=== PATIENT | male | born 1945 | race Caucasian/White ===

== ENCOUNTER 2021-01-28 16:06 | Emergency (ER) | payer MEDICARE, SELFPAY ==
[2021-01-28 16:18] VITALS: BMI 24.3
[2021-01-28 16:48] LABS: Bacteria Urine None Seen
[2021-01-28 16:51] LABS: Appearance Urine UA SL CLOUDY; Bilirubin Urine UA 1+ (NEGATIVE); Color Urine UA RED; Glucose Urine UA NEGATIVE (Negative); Ketones Urine UA NEGATIVE (NEGATIVE); Leukocyte Esterase Urine UA TRACE (NEGATIVE); Occult Blood Urine UA 3+ (Negative); Protein Urine UA 2+ (Negative); Urobilinogen Urine UA 0.2 E.U./dL (0.2); pH Urine UA 6.5 (4.5-8.0)
--- NOTE | 2021-01-28 16:55 | DI.CT.S_ITS ---
PROCEDURE: CT HEAD/BRAIN WO CON INDICATIONS: fall TECHNIQUE: Noncontrast 4.5 mm thick angled axial sections acquired from the foramen magnum to the vertex, with coronal and sagittal reformats. For radiation dose reduction, the following was used: automated exposure control, adjustment of mA and/or kV according to patient size. COMPARISON: [facility], CT, CT CERVICAL SPINE WO CON, 01/28/2021, 17:06. FINDINGS: Image quality: Excellent. CSF spaces: Basal cisterns are patent. No extra-axial fluid collections. The ventricles are symmetric in size and shape. Brain: No intracranial bleeds or masses. There is cerebral volume loss for age, with resultant ventricular and sulcal prominence. There are periventricular and deep white matter chronic small vessel ischemic changes. There is intracranial internal carotid artery atherosclerosis. Skull and face: Calvarium and visualized facial bones appear intact, without suspicious lesions. Sinuses: Visualized sinuses and mastoids are clear. IMPRESSION: No acute intracranial hemorrhage is seen. No acute intracranial process is seen. Dictated by: Thor Nolasco M.D. on 01/28/2021 at 16:28 Approved by: Thor Nolasco M.D. on 01/28/2021 at 16:29
--- NOTE | 2021-01-28 16:55 | DI.CT.S_ITS ---
PROCEDURE: CT CHEST ABD PEL W CON INDICATIONS: hematuria after trauma TECHNIQUE: After the administration of intravenous contrast, 5 mm thick sections acquired from the lung apices to the symphysis. 2.5 mm thick coronal and sagittal reformats were acquired. Additional 7 mm thick coronal maximum intensity projection (MIP) reformats acquired through the lungs. Optional 10-minute delayed imaging may be performed from the kidneys to the bladder. For radiation dose reduction, the following was used: automated exposure control, adjustment of mA and/or kV according to patient size. COMPARISON: [facility], CT, CT HEAD/BRAIN WO CON, 01/28/2021, 17:06. [facility], CT, CT CERVICAL SPINE WO CON, 01/28/2021, 17:06. FINDINGS: Image quality: Excellent. CHEST: Lungs: No pulmonary contusions or lacerations. Numerous calcified granulomas can be seen within the lungs. No suspicious soft tissue nodules are seen. No acute airspace opacities. No pneumothorax or hemothorax. Central and peripheral airways appear patent and normal in caliber. Mediastinum: No mediastinal hematomas. Heart size is normal. No pericardial effusion. Thoracic aorta and pulmonary arteries demonstrate normal size and enhancement. No mediastinal or hilar adenopathy. Calcified mediastinal lymph nodes are seen. Esophagus is normal in caliber. There is a small hiatal hernia. Chest wall: No rib fractures. No subcutaneous emphysema. No axillary or supraclavicular adenopathy. Thyroid gland demonstrates no significant abnormality. ABDOMEN: Solid organs: Liver is normal in size and enhancement, without lacerations. Gallbladder wall is not thickened. Biliary system is non-dilated. Pancreas enhances normally, without transection. Spleen is normal in size and enhancement, without lacerations. No adrenal hematomas. There is a right renal mass seen laterally and superiorly that measures 17.3 x 17.5 x 10 cm. There is irregular enhancement seen within this mass. There is also a simple cyst seen involving the mid kidney measuring water density and 2 cm. Peritoneum and bowel: No free fluid or air. Unenhanced bowel loops demonstrate normal wall thickness and caliber. Nodes and vessels: Enlarged retroperitoneal lymph nodes are seen, including a group right periaortic lymph nodes that measure 3.9 x 3.3 x 5.3 cm, when measured together. No mesenteric adenopathy. Aorta and inferior vena cava are normal in size and enhancement. Miscellaneous: No ventral hernias. PELVIS: Genitourinary: Bladder wall thickness is normal. The prostate is enlarged, measuring greater than 7 cm. Miscellaneous: No inguinal adenopathy. There is a right inguinal hernia seen, which largely contains fat, although it also contains a small amount colon and nondilated small bowel. There is a fat containing left inguinal hernia. Bones: There is a lytic focus seen within the left aspect of the S1-S2 level that measures at least 5.4 cm. Pelvic ring and hip joints appear intact. No vertebral compression fractures. IMPRESSION: No significant acute posttraumatic abnormality is identified. Metastatic renal cancer in till proven otherwise, with a right renal mass seen that measures 17.5 cm. There is also a lytic mass within the left sacrum at the S1-S2 level. Enlarged retroperitoneal lymph nodes are seen, which are metastatic until proven otherwise. Bilateral inguinal hernias are seen, including a right inguinal hernia which contains a portion of colon and nondilated small bowel. Incidental note is made of: Prior granulomatous exposure. Small hiatal hernia Simple right renal cyst Enlarged prostate Note: Case discussed by telephone with Dr. Rodriguez at 5:12 p.m. [place] time on January 28, 2021. Dictated by: Thor Nolasco M.D. on 01/28/2021 at 17:05 Approved by: Thor Nolasco M.D. on 01/28/2021 at 17:14
--- NOTE | 2021-01-28 16:56 | DI.CT.S_ITS ---
PROCEDURE: CT CERVICAL SPINE WO CON INDICATIONS: fall TECHNIQUE: Noncontrast 3 mm thick sections acquired from the skull base to the T4 level. Sagittal and coronal reformats were then constructed. For radiation dose reduction, the following was used: automated exposure control, adjustment of mA and/or kV according to patient size. COMPARISON: [facility], CT, CT HEAD/BRAIN WO CON, 01/28/2021, 17:06. FINDINGS: Image quality: This examination is somewhat limited by quantum mottle artifact. Bones: No fractures or dislocations. Visualized superior ribs are intact. Degenerative changes are seen throughout, with at least moderate disc space narrowing at C3-C4, C4-C5, C5-C6, and C6-C7. Post erected endplate osteophytes are seen, which are worst at C3-C4 and at C6-C7. Soft tissues: Prevertebral soft tissues are normal in thickness. No paravertebral hematomas. No apical pneumothoraces. IMPRESSION: Negative for fracture. Relatively prominent cervical spine degenerative changes are seen. No pneumothorax can be seen at the lung apices. Dictated by: Thor Nolasco M.D. on 01/28/2021 at 16:30 Approved by: Thor Nolasco M.D. on 01/28/2021 at 16:31
[2021-01-28 17:04] LABS: Add Manual Diff / Slide Review NO; Basophils Absolute Auto 100 /uL (0-100); Basophils Percent Auto 0.8 % (0-2); Eosinophils Absolute Auto 300 /uL (0-450); Eosinophils Percent Auto 2.9 % (2-4); Hematocrit 38.5 % (41-53); Hemoglobin 12.5 g/dL (13.5-17.5); Lymphocytes Absolute Auto 1100 /uL (1100-4500); Lymphocytes Percent Auto 11.3 % (25-40); Mean Corpuscular HGB Conc 32.4 % (30-36); Mean Corpuscular Hemoglobin 26.6 PG (26-34); Mean Corpuscular Volume 82.2 fL (80-100); Monocytes Absolute Auto 1000 /uL (0-900); Neutrophils Absolute Auto 7400 /uL (1500-7000); Platelet Count 318 X10^3/uL (150-400); Red Blood Cell Count 4.68 X10^6/uL (4.5-5.9); Red Cell Distribution Width 14.9 % (11.6-14.8); White Blood Cell Count 9.8 X10^3/uL (4.5-11.0)
[2021-01-28 17:04] LABS: Culture Indicated Urine Specimen Cultured; Ictotest Urine Negative (Negative); Nitrite Urine UA NEGATIVE (Negative); RBC Urine >100/HPF (0-5/HPF); WBC Urine 5-10/HPF (0-5/HPF)
[2021-01-28 17:13] LABS: INR 1.3 (0.9-1.3); Prothrombin Time 14.5 SECONDS (10.1-12.7)
[2021-01-28 17:15] LABS: PTT Partial Thromboplastin Tim 35 SECONDS (26.4-36.2)
[2021-01-28 17:17] LABS: Alanine Aminotransferase 18 IU/L (<50); Albumin Globulin Ratio 1.1 (1.0-2.8); Alkaline Phosphatase 110 U/L (38-126); Aspartate Aminotransferase 49 IU/L (17-59); BUN Creatinine Ratio 25.3 (6-22); Bilirubin Total 0.5 mg/dL (0.2-1.3); Blood Urea Nitrogen 19 mg/dL (9-20); Calcium 9.1 mg/dL (8.4-10.2); Carbon Dioxide 27 mmol/L (22-32); Chloride 101 mmol/L (98-107); Creatine Kinase 55 U/L (55-170); Estimated Glomerular Filt Rate > 60.0 mL/min (>60); Globulin 3.8 g/dL (1.7-4.1); Glucose 106 mg/dL (80-110); HEMOLYSIS < 15 (0-50); Potassium 4.1 mmol/L (3.4-5.1); Sodium 136 mmol/L (137-145); Total Protein 7.8 g/dL (6.3-8.2)
--- NOTE | 2021-01-28 17:20 | ED_ITS ---
HPI - Fall General Chief Complaint: Trauma Stated Complaint: FALL HIT FACE BLOOD IN URINE Time Seen by Provider: 01/28/21 16:36 Source: patient Mode of arrival: Ambulatory History of Present Illness HPI Narrative: Patient is a 75-year-old male who presents after a fall. He was walking around on some rocks at [facility]. There is a small crevice and legs high he fell in between the crevice kind of hit his face. He did not hit his head no loss of consciousness. He really has no injury except for some small abrasions on his face. However what brought him to the emergency department is that he is urinating blood. He said the 1st time it was quite a bit on the time in the emergency department now it is extremely dark and cloudy. He has absolutely no back pain. He is not dizzy or lightheaded. He has no blood in his meatus. He denies any testicular pain. He has been ambulatory without difficulty. He really has no other complaints. He has not had any weakness or fatigue. No significant weight loss. Related Data Allergies Allergy/AdvReac Type Severity Reaction Status Date / Time No Known Drug Allergies Allergy Verified 01/28/21 16:25 Review of Systems Review of Systems ROS Unobtainable: All systems reviewed & are unremarkable except as noted in HPI and below Constitutional Constitutional: Denies chills, Denies fatigue, Denies fever(s), Denies frequent falls, Denies lethargy and Denies weakness Eyes Eyes: Denies change in vision, Denies eye discharge, Denies irritation and Denies loss of vision ENT Ears, Nose, Mouth, and Throat: Denies change in voice, Denies dizziness, Denies neck pain, Denies sore throat and Denies throat swelling Cardiovascular Cardiovascular: Denies chest pain, Denies irregular heart rhythm, Denies lightheadedness, Denies palpitations, Denies dyspnea, Denies dyspnea on exertion and Denies orthopnea Respiratory Respiratory: Denies cough, Denies dyspnea, Denies dyspnea on exertion and Denies wheezing Gastrointestinal Gastrointestinal: Denies abdominal pain, Denies change in bowel habits, Denies diarrhea, Denies nausea and Denies vomiting Genitourinary Genitourinary: Reports as per HPI Musculoskeletal Musculoskeletal: Denies neck pain and Denies numbness Integumentary/Breasts Skin/Breast: Denies pruritus, Denies erythema, Denies rash and Reports wounds (Abrasions on face) Neurologic Neurologic: Denies dizziness, Denies frequent falls, Denies loss of vision, Denies numbness and Denies weakness Endocrine Endocrine: Denies fatigue, Denies flushing and Denies palpitations Hematologic/Lymphatic Hematologic/Lymphatic: Denies easy bruising Allergic/Immunologic Allergic/Immunologic: Denies urticaria, Denies throat swelling and Denies wheezing Patient History Social History Smoking Status: Never smoker Smoking Status: Never smoker alcohol intake frequency: holidays/special occasions only Substance Use Type: does not use Exam Initial Vital Signs Initial Vital Signs: GENERAL: Alert pleasant 75-year-old male and in no acute distress. HEENT: Head atraumatic,EOMI, pupils reactive, mild facial abrasions on it chin and right cheek NECK: Supple no vertebral tenderness no step-off CARDIOVASCULAR: Regular rate and rhythm without murmurs, rubs or gallops. RESPIRATORY: Breath sounds equal bilaterally, no wheezes rales or rhonchi. ABDOMEN: Soft, nontender. Normoactive bowel sounds all 4 quadrants. No guarding or rebound. BACK: No vertebral tenderness no step-offs no sign of trauma : No CVA tenderness, Alejandra nurse in room no blood at meatus no testicular pain no sign of trauma EXTREMITIES: Normal range of motion, no clubbing or edema. Neurovascularly intact NEUROLOGICAL: Alert and oriented x4.Normal gait and speech. Cranial nerves II through XII grossly intact. SKIN: Warm, dry, no laceration, no petechiae, no rashes or lesions. Course Orders Ordered: ED Orders 01/28/21 16:25 Ictotest Urine Stat Urinalysis and Microscopic Stat Urine Culture Stat 01/28/21 16:55 CT chest abd pel w con Stat CT head/brain wo con Stat Complete Blood Count AUTO DIFF Stat Comprehensive Metabolic Panel Stat Creatine Kinase Stat Partial Thromboplastin Time Stat Prothrombin Time INR Stat 01/28/21 16:56 CT cervical spine wo con Stat MDM - Fall Lab Data Attestation: I reviewed the patient's lab results. Result diagrams: 01/28/21 16:55 01/28/21 16:55 Labs: Lab Results 01/28/21 01/28/21 01/28/21 Range/Units 16:25 16:55 16:55 WBC 9.8 (4.5-11.0) X10^3/uL RBC 4.68 (4.5-5.9) X10^6/uL Hgb 12.5 L (13.5-17.5) g/dL Hct 38.5 L (41-53) % MCV 82.2 (80-100) fL MCH 26.6 (26-34) PG MCHC 32.4 (30-36) % RDW 14.9 H (11.6-14.8) % Plt Count 318 (150-400) X10^3/uL Neut % (Auto) 75.0 (50-75) % Lymph % (Auto) 11.3 L (25-40) % [place] % (Auto) 10.0 (3-14) % Eos % (Auto) 2.9 (2-4) % Baso % (Auto) 0.8 (0-2) % Neut # (Auto) 7400 H (6691-1641) /uL Lymph # (Auto) 1100 (7883-1624) /uL [place] # (Auto) 1000 H (0-900) /uL Eos # (Auto) 300 (0-450) /uL Baso # (Auto) 100 (0-100) /uL PT 14.5 H (10.1-12.7) SECONDS INR 1.3 (0.9-1.3) APTT 35 (26.4-36.2) SECONDS Sodium (137-145) mmol/L Potassium (3.4-5.1) mmol/L Chloride (98-107) mmol/L Carbon Dioxide (22-32) mmol/L BUN (9-20) mg/dL Creatinine (0.66-1.25) mg/dL Estimated GFR (>60) mL/min BUN/Creatinine Ratio (6-22) Glucose (80-110) mg/dL Calcium (8.4-10.2) mg/dL Total Bilirubin (0.2-1.3) mg/dL AST (17-59) IU/L ALT (<50) IU/L Alkaline Phosphatase (38-126) U/L Total Creatine Kinase (55-170) U/L Total Protein (6.3-8.2) g/dL Albumin (3.5-5.0) g/dL Globulin (1.7-4.1) g/dL Albumin/Globulin Ratio (1.0-2.8) Urine Color Red Urine Appearance Sl cloudy Urine pH 6.5 (4.5-8.0) Ur Specific [place] 1.020 (1.000-1.035) Urine Protein 2+ H (Negative) Urine Glucose (UA) Negative (Negative) g/dL Urine Ketones Negative (NEGATIVE) Urine Occult Blood 3+ H (Negative) Urine Nitrate Negative (Negative) Urine Bilirubin 1+ H (NEGATIVE) Ur Bilirubin Confirm Negative (Negative) Urine Urobilinogen 0.2 (0.2) E.U./dL Ur Leukocyte Esterase Trace H (NEGATIVE) Urine RBC >100/hpf H (0-5/HPF) Urine WBC 5-10/hpf H (0-5/HPF) Urine Bacteria None seen (None) Ur Culture Indicated? Specimen cultured 01/28/21 Range/Units 16:55 WBC (4.5-11.0) X10^3/uL RBC (4.5-5.9) X10^6/uL Hgb (13.5-17.5) g/dL Hct (41-53) % MCV (80-100) fL MCH (26-34) PG MCHC (30-36) % RDW (11.6-14.8) % Plt Count (150-400) X10^3/uL Neut % (Auto) (50-75) % Lymph % (Auto) (25-40) % [place] % (Auto) (3-14) % Eos % (Auto) (2-4) % Baso % (Auto) (0-2) % Neut # (Auto) (7735-1104) /uL Lymph # (Auto) (4799-1086) /uL [place] # (Auto) (0-900) /uL Eos # (Auto) (0-450) /uL Baso # (Auto) (0-100) /uL PT (10.1-12.7) SECONDS INR (0.9-1.3) APTT (26.4-36.2) SECONDS Sodium 136 L (137-145) mmol/L Potassium 4.1 (3.4-5.1) mmol/L Chloride 101 (98-107) mmol/L Carbon Dioxide 27 (22-32) mmol/L BUN 19 (9-20) mg/dL Creatinine 0.75 (0.66-1.25) mg/dL Estimated GFR > 60.0 (>60) mL/min BUN/Creatinine Ratio 25.3 H (6-22) Glucose 106 (80-110) mg/dL Calcium 9.1 (8.4-10.2) mg/dL Total Bilirubin 0.5 (0.2-1.3) mg/dL AST 49 (17-59) IU/L ALT 18 (<50) IU/L Alkaline Phosphatase 110 (38-126) U/L Total Creatine Kinase 55 (55-170) U/L Total Protein 7.8 (6.3-8.2) g/dL Albumin 4.0 (3.5-5.0) g/dL Globulin 3.8 (1.7-4.1) g/dL Albumin/Globulin Ratio 1.1 (1.0-2.8) Urine Color Urine Appearance Urine pH (4.5-8.0) Ur Specific [place] (1.000-1.035) Urine Protein (Negative) Urine Glucose (UA) (Negative) g/dL Urine Ketones (NEGATIVE) Urine Occult Blood (Negative) Urine Nitrate (Negative) Urine Bilirubin (NEGATIVE) Ur Bilirubin Confirm (Negative) Urine Urobilinogen (0.2) E.U./dL Ur Leukocyte Esterase (NEGATIVE) Urine RBC (0-5/HPF) Urine WBC (0-5/HPF) Urine Bacteria (None) Ur Culture Indicated? Imaging Data CT scan - head: Radiologist's Impression: PROCEDURE: CT HEAD/BRAIN WO CON INDICATIONS: fall TECHNIQUE: Noncontrast 4.5 mm thick angled axial sections acquired from the foramen magnum to the vertex, with coronal and sagittal reformats. For radiation dose reduction, the following was used: automated exposure control, adjustment of mA and/or kV according to patient size. COMPARISON: [facility], CT, CT CERVICAL SPINE WO CON, 01/28/2021, 17:06. FINDINGS: Image quality: Excellent. CSF spaces: Basal cisterns are patent. No extra-axial fluid collections. The ventricles are symmetric in size and shape. Brain: No intracranial bleeds or masses. There is cerebral volume loss for age, with resultant ventricular and sulcal prominence. There are periventricular and deep white matter chronic small vessel ischemic changes. There is intracranial internal carotid artery atherosclerosis. Skull and face: Calvarium and visualized facial bones appear intact, without suspicious lesions. Sinuses: Visualized sinuses and mastoids are clear. IMPRESSION: No acute intracranial hemorrhage is seen. No acute intracranial process is seen. Dictated by: Thor Nolasco M.D. on 01/28/2021 at 16:28 Approved by: Thor Nolasco M.D. on 01/28/2021 at 16:29 CT - cervical spine: Radiologist's Impression: PROCEDURE: CT CERVICAL SPINE WO CON INDICATIONS: fall TECHNIQUE: Noncontrast 3 mm thick sections acquired from the skull base to the T4 level. Sagittal and coronal reformats were then constructed. For radiation dose reduction, the following was used: automated exposure control, adjustment of mA and/or kV according to patient size. COMPARISON: [facility], CT, CT HEAD/BRAIN WO CON, 01/28/2021, 17:06. FINDINGS: Image quality: This examination is somewhat limited by quantum mottle artifact. Bones: No fractures or dislocations. Visualized superior ribs are intact. Degenerative changes are seen throughout, with at least moderate disc space narrowing at C3-C4, C4-C5, C5-C6, and C6-C7. Post erected endplate osteophytes are seen, which are worst at C3-C4 and at C6-C7. Soft tissues: Prevertebral soft tissues are normal in thickness. No paravertebral hematomas. No apical pneumothoraces. IMPRESSION: Negative for fracture. Relatively prominent cervical spine degenerative changes are seen. No pneumothorax can be seen at the lung apices. Dictated by: Thor Nolasco M.D. on 01/28/2021 at 16:30 CT scan - abdomen/pelvis: Radiologist's Impression: PROCEDURE: CT CHEST ABD PEL W CON INDICATIONS: hematuria after trauma TECHNIQUE: After the administration of intravenous contrast, 5 mm thick sections acquired from the lung apices to the symphysis. 2.5 mm thick coronal and sagittal reformats were acquired. Additional 7 mm thick coronal maximum intensity projection (MIP) reformats acquired through the lungs. Optional 10-minute delayed imaging may be performed from the kidneys to the bladder. For radiation dose reduction, the following was used: automated exposure control, adjustment of mA and/or kV according to patient size. COMPARISON: [facility], CT, CT HEAD/BRAIN WO CON, 01/28/2021, 17:06. [facility], CT, CT CERVICAL SPINE WO CON, 01/28/2021, 17:06. FINDINGS: Image quality: Excellent. CHEST: Lungs: No pulmonary contusions or lacerations. Numerous calcified granulomas can be seen within the lungs. No suspicious soft tissue nodules are seen. No acute airspace opacities. No pneumothorax or hemothorax. Central and peripheral airways appear patent and normal in caliber. Mediastinum: No mediastinal hematomas. Heart size is normal. No pericardial effusion. Thoracic aorta and pulmonary arteries demonstrate normal size and enhancement. No mediastinal or hilar adenopathy. Calcified mediastinal lymph nodes are seen. Esophagus is normal in caliber. There is a small hiatal hernia. Chest wall: No rib fractures. No subcutaneous emphysema. No axillary or supraclavicular adenopathy. Thyroid gland demonstrates no significant abnormality. ABDOMEN: Solid organs: Liver is normal in size and enhancement, without lacerations. Gallbladder wall is not thickened. Biliary system is non-dilated. Pancreas enhances normally, without transection. Spleen is normal in size and enhancement, without lacerations. No adrenal hematomas. There is a right renal mass seen laterally and superiorly that measures 17.3 x 17.5 x 10 cm. There is irregular enhancement seen within this mass. There is also a simple cyst seen involving the mid kidney measuring water density and 2 cm. Peritoneum and bowel: No free fluid or air. Unenhanced bowel loops demonstrate normal wall thickness and caliber. Nodes and vessels: Enlarged retroperitoneal lymph nodes are seen, including a group right periaortic lymph nodes that measure 3.9 x 3.3 x 5.3 cm, when measured together. No mesenteric adenopathy. Aorta and inferior vena cava are normal in size and enhancement. Miscellaneous: No ventral hernias. PELVIS: Genitourinary: Bladder wall thickness is normal. The prostate is enlarged, measuring greater than 7 cm. Miscellaneous: No inguinal adenopathy. There is a right inguinal hernia seen, which largely contains fat, although it also contains a small amount colon and nondilated small bowel. There is a fat containing left inguinal hernia. Bones: There is a lytic focus seen within the left aspect of the S1-S2 level that measures at least 5.4 cm. Pelvic ring and hip joints appear intact. No vertebral compression fractures. IMPRESSION: No significant acute posttraumatic abnormality is identified. Metastatic renal cancer in till proven otherwise, with a right renal mass seen that measures 17.5 cm. There is also a lytic mass within the left sacrum at the S1-S2 level. Enlarged retroperitoneal lymph nodes are seen, which are metastatic until proven otherwise. Bilateral inguinal hernias are seen, including a right inguinal hernia which contains a portion of colon and nondilated small bowel. Incidental note is made of: Prior granulomatous exposure. Small hiatal hernia Simple right renal cyst Enlarged prostate Note: Case discussed by telephone with Dr. Rodriguez at 5:12 p.m. [place] time on January 28, 2021. Dictated by: Thor Nolasco M.D. on 01/28/2021 at 17:05 MDM Narrative Medical decision making narrative: The patient has very minor abrasions on his face. Daughter showed me a picture of somewhere like he fell. It does not seem to be extremely high height. He is ambulatory. However his urine is quite grossly bloody. Decision to do CT based on patient's age and concern for possible internal injury which I am not seeing. CT returns with large right renal mass with metastatic disease to the left sacrum. Patient is re-questioned he denies any fatigue or weight loss. He says this is the 1st time he has ever had hematuria. He states that he has been h aving some left sciatic issues off and on for the past few months. The mass in the sacrum is likely explanation for this. Patient has good primary care provider whom he is close with. He can call her tomorrow to schedule follow-up appointment. At this time blood work is overall reassuring. He is relatively asymptomatic. He states that the hematuria is improving, but is having clots. I have di scussed with him when to return to the emergency department he may need Pena catheter but still urinating at this time. He is offered 1 now but reasonably declines. Discharge Plan Departure Patient Disposition: Home Clinical Impression: Mass of right kidney Hematuria Qualifiers: Hematuria type: gross Qualified Code(s): R31.0 - Gross hematuria Instructions: Kidney Cancer, DI for Hematuria Activity Restrictions/Additional Instructions: You Do have a very large right kidney mass with metastatic lesion to her left sacrum as well At this time please call your primary care provider 1st thing tomorrow so he can have close follow-up with the return next week. He will need urgent referral to Urology and Oncology. At this time I see no need to emergently fly home, please stay and enjoy your family. Please increase your fluid intake this will help with the blood in your urine. Your urine should start to clear up. You may take Tylenol 650mg every 4-6 hours if needed for pain Return to the emergency department if you are having persistent bloody urine, or inability to urinate, increasing pain, weakness numbness or tingling.
[2021-01-28 19:34] VITALS: BP 150/75; PULSE 101; RESP 16; O2SAT 100
== END 2021-01-28 19:34 | disposition home or self-care (01) ==
PROVIDERS: Emergency Provider Emergency Medicine
DX: N28.89 Other specified disorders of kidney and ureter (principal); R31.9 Hematuria, unspecified; S00.81XA Abrasion of other part of head, initial encounter; W19.XXXA Unspecified fall, initial encounter
CPT/HCPCS: 36415; 70450; 71260; 72125; 74177; 80053; 81001; 82550; 85025; 85610; 85730; 87086; 99283; 99284; Q9967